=== PATIENT | male | born 1960 | race Caucasian/White ===

== ENCOUNTER 2018-10-17 07:31 | Emergency (ER) | payer OTHER ==
[~2018-10-17] VITALS: Ht 162.6 cm; Wt 74.0 kg
[2018-10-17 07:33] VITALS: BP 176/85
[2018-10-17] MEDS: KETOROLAC 30 MG/ML VIAL IM ONE (08:19)
[2018-10-17 08:35] VITALS: BP 168/78
== END 2018-10-17 08:36 | disposition home or self-care (01) ==
LOC: MED 07:31
DX: M19.011 Primary osteoarthritis, right shoulder (principal); I10 Essential (primary) hypertension
CPT/HCPCS: 96372; 99283; J1885